=== PATIENT | male | born 1945 | race Caucasian/White ===

== ENCOUNTER 2018-06-07 12:03 | Inpatient (IN) | payer OTHER ==
[2018-06-07] VITALS (8 sets, daily range): BP systolic 113–150; BP diastolic 45–92
[~2018-06-07] VITALS: Ht 167.6 cm; Wt 65.3 kg
[~2018-06-07 12:03] MED LIST: ACET325T53 PO; ALBU18HF2 IH; ALBU2.5V13 NEB; ALBU8.5H8 HHN; ALLA266C2 TP; ASPI-992 PO; FLUT1DIS28 IH; IPRA0.2S49; LEVO750T21 PO; PANT40TA2 PO; PRED10TA PO; PRED20TA GT; PRED50TA PO; SIMV20TA2 PO; Zolpidem Tartrate PO
[2018-06-07] MEDS ORDERED: ADENOSINE 6 MG/2 ML VIAL ONE (12:08)
[2018-06-07] MEDS ORDERED: METOPROLOL TARTRATE INJ 5 MG/5 ML AMPUL ONE (12:13)
[2018-06-07 12:15] LABS: BASOPHILS # (AUTO) 0.1 /CMM (0.0-0.2); BASOPHILS % (AUTO) 0.4 % (0.0-2.0); EOSINOPHILS % (AUTO) 2.8 % (0.0-6.0); HEMATOCRIT 56 % (39-51); HEMOGLOBIN 18.5 g/dL (13.5-17.5); LYMPHOCYTES # (AUTO) 0.7 /CMM (0.8-4.8); LYMPHOCYTES % (AUTO) 4.7 % (20.0-44.0); MEAN CORPUSCULAR HGB CONC 33 g/dl (31.0-36.0); MEAN CORPUSCULAR VOLUME 89 fL (80-96); MONOCYTES # (AUTO) 0.9 /CMM (0.1-1.30); NEUTROPHILS # (AUTO) 13.2 /CMM (1.8-8.9); NEUTROPHILS % (AUTO) 86.1 % (43.0-81.0); PLATELET COUNT (AUTO) 341 /CMM (150-450); RED BLOOD CELL COUNT(AUTO) 6.27 MIL/uL (4.5-6.0); WHITE BLOOD COUNT (AUTO) 15.3 K/uL (4.3-11.0)
[2018-06-07] MEDS ORDERED: methylPREDNISolone SOD SUCC 125 MG/2ML VIAL ONE (12:15)
[2018-06-07 12:26] LABS: CALCIUM, SERUM 9.9 mg/dL (8.5-10.1); CARBON DIOXIDE 34 mmol/L (21-32); CHLORIDE 99 mmol/L (98-107); CREATININE 0.9 mg/dL (0.6-1.3); GLUCOSE 134 mg/dL (74-106); POTASSIUM 3.9 mmol/L (3.5-5.1); SODIUM SERUM 141 mmol/L (136-145); UREA NITROGEN, BLOOD 18 mg/dL (7-18)
[2018-06-07] MEDS ORDERED: METOPROLOL TARTRATE INJ 5 MG/5 ML AMPUL IV ONE (12:30)
[2018-06-07] MEDS ORDERED: methylPREDNISolone SOD SUCC 125 MG/2ML VIAL IV ONE (12:30)
[2018-06-07] MEDS ORDERED: ADENOSINE 6 MG/2 ML VIAL IVP ONE (12:30)
[2018-06-07] MEDS ORDERED: IV NS 0.9% 500 ML BAG IV ONE (12:30)
--- NOTE | 2018-06-07 12:31 | NUR ---
RT NOTE PT PLACED ON BIPAP PER MD ORDER. SETTINGS PRESCRIBED BY MD 15/5. 40%. PT AWAKE AND ALERT. ALARMS SET PER PROTOCOL AND AUDIBLE. BIPAP PLUGGED IN TO RED OUTLET. BIPAP MASK SET AND SECURE PROPERLY. AMBU BAG AT BED SIDE. Addendum: 06/07/18 at 1234 by CAIT CLARK RT Amended: Links added.
[2018-06-07 12:38] LABS: B-TYPE NATRIURETIC PEPTIDE 66 PG/ML (0-125)
[2018-06-07] MEDS ORDERED: TIOT18CA3 IH (12:39)
[2018-06-07] MEDS ORDERED: IPRA12.9 IH (12:39)
[2018-06-07] MEDS ORDERED: ALBU8.5H8 IH (12:39)
[2018-06-07] MEDS ORDERED: FLUT1DIS3 IH (12:39)
[2018-06-07] MEDS ORDERED: PRED10TA PO (12:39)
--- NOTE | 2018-06-07 12:40 | NUR ---
[id number] FROM HOME C/O SOB X 1 WEEK, SVT W/ RATE 167, ADENOSINE 6MG GIVEN IN FIELD. PT HAVING DIFFICULTY BREATHING, USING EXCESSORY MUSCLES. DR. STALEY @ BS. 1215 GIVEN 12 MG OF ADENOSINE IVP 1216 GIVEN 5 MG OF METROPOLOL IVP 1216 GIVEN 125 MG OF SOLUMEDROL IVP 1218 PLACE PT ON BIPAP MACHINE. PT JESSICA WELL. PT CONVERTED TO SR, DENIES CP, SOB, DIZZINESS, N/V @ THIS TIME. WILL CONT TO MONITOR.
[2018-06-07] MEDS ORDERED: GEMF600T5 PO (12:42)
[2018-06-07] MEDS ORDERED: IPRA3AMP23 IH (12:42)
[2018-06-07] MEDS ORDERED: ATOR10TA PO (12:43)
[2018-06-07 13:30] LABS: EOSINOPHILS % (MANUAL) 3 % (0-4); LYMPHOCYTES % (MANUAL) 4 % (16-48); MONOCYTES % (MANUAL) 5 % (0-11.0); NEUTROPHILS % (MANUAL) 88 (42-76)
--- NOTE | 2018-06-07 13:30 | NUR ---
PT SITTING UP AAOX4, STS " I FEEL BETTER ". DENIES CP, SOB, DIZZINESS, OR ANY OTHER DISCOMFORT. PT ON BIPAP & JESSICA WELL. AWAITING BED ASSIGNMENT. WILL CONT TO MONITOR.
--- NOTE | 2018-06-07 14:25 | NUR ---
NURSING SUP STATES PT CANNOT BE MOVED UNTIL FOUNDATION ENGINEER ARRIVES, ETA BEFORE 1900 HOURS
[2018-06-07] MEDS ORDERED: IPRATROPIUM NEB FS 0.5 MG/2.5 ML AMPUL.NEB NEB SCH (16:30)
[2018-06-07] MEDS ORDERED: ACETAMINOPHEN 325 MG TABLET PO PRN (16:30)
[2018-06-07] MEDS: GEMFIBROZIL 600 MG TABLET PO SCH (16:30)
[2018-06-07] MEDS ORDERED: LEVALBUTEROL HCL NEB 1.25 MG/0.5 ML VIAL.NEB NEB SCH (16:30)
[2018-06-07] MEDS ORDERED: IPRATROPIUM NEB FS 0.5 MG/2.5 ML AMPUL.NEB ONE (16:35)
--- NOTE | 2018-06-07 16:42 | NUR ---
ADMIT TO ICU BED 257 PEDRO HOWARD
--- NOTE | 2018-06-07 16:58 | NUR ---
REPORT GIVEN TO PEDRO HOWARD @ ICU FOR CONT OF CARE.
--- NOTE | 2018-06-07 17:40 | NUR ---
RT NOTE PT TRANSFERRED TO ICU. PT PLACED BACK ON BIPAP ON SETTINGS PRESCRIBED. ALARMS SET PER PROTOCOL AND AUDIBLE. PT AWAKE AND ALERT. NO DISTRESS NOTED. BIPAP PLUGGED IN TO RED OUTLET. MASK SET AND SECURE PROPERLY. MEPILEX PLACED. Addendum: 06/07/18 at 1742 by CAIT CLARK RT Amended: Links added.
[2018-06-07] MEDS: IV 1/2NS 1000 ML 1,000 ML IV PRN (18:24)
[2018-06-07] MEDS: ATORVASTATIN 10 MG TABLET PO SCH (18:28)
[2018-06-07] MEDS: methylPREDNISolone SOD SUCC 40 MG/ML VIAL IV SCH ×2 (18:28→23:50)
[2018-06-07] MEDS: ASPIRIN 325 MG TABLET PO SCH (18:28)
[2018-06-07] MEDS: LEVOFLOXACIN 500 MG /D5W 100ML 500 MG in PREMIX 1 EA IV SCH (18:29)
[2018-06-07] MEDS ORDERED: AMLODIPINE BESYLATE 5 MG TABLET PO SCH (19:30)
[2018-06-07] MEDS: ALBUTEROL HALF STRENGTH 1.25 MG/3 ML VIAL.NEB NEB SCH (20:26)
[2018-06-07] MEDS: IPRATROPIUM NEB FS 0.5 MG/2.5 ML AMPUL.NEB NEB SCH (20:27)
--- NOTE | 2018-06-07 20:57 | NUR ---
DEVELOPMENT CONSULTANT. ADMISSION. RECEIVED THE PT FROM ER VIA INCHRON. PT AWAKE, ALERT, FOLLOW COMMANDS. ELECTRICAL LOGGER SHOWING NSR. BIPAP ON. SETTINGS 15/5, RATE IS 16, FIO2 40%. SAT 99%. NO ACUTE DISTRESS NOTED. IV RT AND LT AC 20G. IVF 1/2NS 100ML/H, HOB ELEVATED. WILL CONTINUE TO MONITOR VITALS.
[2018-06-08] VITALS (36 sets, daily range): BP systolic 114–169; BP diastolic 58–122
[2018-06-08] MEDS: ALBUTEROL HALF STRENGTH 1.25 MG/3 ML VIAL.NEB NEB SCH ×6 (00:04→23:22)
[2018-06-08] MEDS: IPRATROPIUM NEB FS 0.5 MG/2.5 ML AMPUL.NEB NEB SCH ×5 (01:40→23:23)
--- NOTE | 2018-06-08 03:34 | NUR ---
QA REVIEWER. AM CARE. ORAL CARE,BED BATH GIVEN. LINEN CHANGED, REMAINING SAME BIPAP SETTINGS TOLERATED WELL. SAT 99%, NO ACUTE DISTRESS NOTED,CARRDIAC MONITOR SHOWING NSR, IV RT HAND 20G. IVF 1/2NS 100ML/H. HOB ELEVATED. WILL CONTINUE TO MONITOR VITALS.
[2018-06-08] MEDS: IV 1/2NS 1000 ML 1,000 ML IV PRN ×2 (03:50→14:46)
[2018-06-08 05:11] LABS: CALCIUM, SERUM 8.2 mg/dL (8.5-10.1); CARBON DIOXIDE 31 mmol/L (21-32); CHLORIDE 100 mmol/L (98-107); CREATININE 0.7 mg/dL (0.6-1.3); GLUCOSE 148 mg/dL (74-106); POTASSIUM 4.1 mmol/L (3.5-5.1); SODIUM SERUM 139 mmol/L (136-145); UREA NITROGEN, BLOOD 20 mg/dL (7-18)
[2018-06-08] MEDS: methylPREDNISolone SOD SUCC 40 MG/ML VIAL IV SCH ×4 (05:16→23:46)
[2018-06-08 05:20] LABS: BASOPHILS % (AUTO) 0.2 % (0.0-2.0); EOSINOPHILS % (AUTO) 0.2 % (0.0-6.0); HEMATOCRIT 43 % (39-51); HEMOGLOBIN 14.5 g/dL (13.5-17.5); LYMPHOCYTES # (AUTO) 0.3 /CMM (0.8-4.8); LYMPHOCYTES % (AUTO) 3.2 % (20.0-44.0); MEAN CORPUSCULAR HGB CONC 34 g/dl (31.0-36.0); MEAN CORPUSCULAR VOLUME 88 fL (80-96); MONOCYTES # (AUTO) 0.2 /CMM (0.1-1.30); MONOCYTES % (AUTO) 2.2 % (2.0-12.0); NEUTROPHILS # (AUTO) 7.8 /CMM (1.8-8.9); NEUTROPHILS % (AUTO) 94.2 % (43.0-81.0); PLATELET COUNT (AUTO) 242 /CMM (150-450); RED BLOOD CELL COUNT(AUTO) 4.85 MIL/uL (4.5-6.0); WHITE BLOOD COUNT (AUTO) 8.3 K/uL (4.3-11.0)
[2018-06-08 05:26] LABS: CHOLESTEROL 202 mg/dL (<200); HDL CHOLESTEROL 58 mg/dL (40-60); LDL 130 mg/dL (0-99); THYROID STIMULATING HORMONE 0.203 uIU/mL (0.358-3.74); TRIGLYCERIDES 70 mg/dL (30-150)
--- NOTE | 2018-06-08 05:50 | NUR ---
SCHOOL BUS TECHNICIAN PT URINE NOT PASSED. BLADDER DISTENDED. FC 16FG PLACED WITH OUT DIFFICULT. CLEAR URINE DRAINING.
--- NOTE | 2018-06-08 07:15 | NUR ---
RN INITIAL NOTES: Rec'd pt awake on bed, not in any distress, A/O x 4. On Bipap, sating at 100%. On telemonitor, SR. Has IV access on R AC G18 w/ 1/2 NS x 100cc/hr infusing well & L hand G20, SL. Has FC draining to BSB w/ yellowish UOP. Safety precaution in place. Call light w/in reach. Will continue to monitor & attend pt needs.
--- NOTE | 2018-06-08 08:00 | NUR ---
Pt seen & examined by Dr. Vizcaino. Made him aware re: BP trending up w/ orders made & carried out.
[2018-06-08] MEDS: DILTIAZEM HCL CD 120 MG PO SCH ×2 (09:24→17:42)
[2018-06-08] MEDS: ASPIRIN 325 MG TABLET PO SCH (09:24)
[2018-06-08] MEDS: GEMFIBROZIL 600 MG TABLET PO SCH (09:24)
--- NOTE | 2018-06-08 10:00 | NUR ---
Pt seen & examined by Dr. Jimenez w/ orders to place pt on NC to keep SBP >90% & then check ABG after an hour. RT Whitfield made aware.
--- NOTE | 2018-06-08 11:15 | NUR ---
ABG results reviewed by Dr. Jimenez w/ orders to keep pt on NC at 4lpm, no need for BIPAP at HS. Pt made aware.
[2018-06-08 11:59] LABS: ABG BASE EXCESS 3.8 mmol/L; ABG OXYGEN SATURATION 97.6 % (92.0-98.5); ABG PCO2 45.3 mmHg (35.0-45.0); ABG PH 7.423 (7.350-7.450); ABG PO2 99.2 mmHg (75.0-100.0); AaDO2 104.9 mmHg; COHb 0.7 % (0.5-1.5); MetHb 0.5 % (0.0-1.5); O2Hb 96.4 % (94.0-97.0); SITE, ABG Right Radial; VENT MODE, BG N/C
--- NOTE | 2018-06-08 17:30 | NUR ---
Pt requesting for Ensure Vanilla TID w/ meals. Dr. Vizcaino made aware & said okay.
[2018-06-08] MEDS: LEVOFLOXACIN 500 MG /D5W 100ML 500 MG in PREMIX 1 EA IV SCH (17:42)
[2018-06-08] MEDS: ATORVASTATIN 10 MG TABLET PO SCH (17:42)
--- NOTE | 2018-06-08 18:00 | NUR ---
Pt requesting if he can be place on BIPAP at . Dr. Jimenez informed & ordered Bipap 08/10.
--- NOTE | 2018-06-08 18:54 | NUR ---
RN CLOSING NOTES: Pt resting comfortably on his bed at this time. Pt tolerated NC at 4lpm but would like to be on Bipap at HS. On telemonitor, still SR. IV access kept patent & intact: R AC G18 w/ 1/2 NS x 100cc/hr infusing well & L hand G20, SL. FC draining to BSB w/ adequate yellowish UOP. Safety precaution kept in place at all times. Call light w/in reach. Endorsed to PM RN for GELACIO. Pt c/o of Vicky MOLINA. Ear drums checked using otoscope, no redness noted.
--- NOTE | 2018-06-08 20:09 | NUR ---
PT IS AWAKE AND ALERT ON NC. PT REQUESTED TO BE ON BIPAP, LITTLE SHORT OF BREATH. RN NOTIFIED. REDNESS AROUND THE BRIDGE OF THE NOSE. MEPILEX IN PLACE. RN AWARE. ALARMS SET AND AUDIBLE. WILL CONTINUE TO MONITOR. Addendum: 06/08/18 at 2010 by JOHNNY HOWARD RT Amended: Links added.
--- NOTE | 2018-06-08 23:06 | NUR ---
FITTER PLACER NOTE 1904 Received patient awake and alert, oriented. denies any pain and discomfort, no distress. Patient on 4Lpm of O2 via NC, saturating well. HOB elevated. IVF as ordered. F/C in place and intact, patent. draining well via gravity. needs anticipated and met. safety and comfort ensured. bed alarm in place. call light in reach. 1999 RT at bedside, patient requesting for BiPAP to be placed. patient noted with redness on bridge of nose. offered Bipap mask alternative, patient prefers old mask, mepilex placed for skin management. placed on BiPAP per request. no distress. 2299 Patient with no acute distress. tolerating Bipap well. saturating well. good UO.
[2018-06-09] VITALS (20 sets, daily range): BP systolic 104–160; BP diastolic 53–79
[2018-06-09] MEDS: IV 1/2NS 1000 ML 1,000 ML IV PRN ×2 (02:18→11:42)
[2018-06-09] MEDS: ALBUTEROL HALF STRENGTH 1.25 MG/3 ML VIAL.NEB NEB SCH ×4 (03:28→19:53)
[2018-06-09 04:46] LABS: CALCIUM, SERUM 9.1 mg/dL (8.5-10.1); CARBON DIOXIDE 31 mmol/L (21-32); CHLORIDE 100 mmol/L (98-107); CREATININE 0.8 mg/dL (0.6-1.3); GLUCOSE 158 mg/dL (74-106); POTASSIUM 4.6 mmol/L (3.5-5.1); SODIUM SERUM 131 mmol/L (136-145); UREA NITROGEN, BLOOD 23 mg/dL (7-18)
[2018-06-09] MEDS: methylPREDNISolone SOD SUCC 40 MG/ML VIAL IV SCH ×3 (06:01→17:13)
--- NOTE | 2018-06-09 06:37 | NUR ---
CHEMISTRY SPECIALIST CLOSING NOTE Patient with no acute change in condition observed overnight. no distress and denies pain and discomfort. IVF as ordered, meds given. on BiPAP, breathing is even and unlabored. F/C intact, patent. safety and comfort ensured. bed in low and locked position. call light in reach. bed alarm in place. will endorse accordingly.
--- NOTE | 2018-06-09 06:39 | NUR ---
OFF BIPAP. PLACED ON 4L NC. NOTIFIED RN.
--- NOTE | 2018-06-09 07:15 | NUR ---
RN INITIAL NOTES RECEIVED PT AWAKE, A/OX4. ON 02 VIA 4LPM. HOB ELEVATED. DENIES ANY PAIN. IV LINES IN PLACE. IVF INFUSING. FC IN PLACE. NO HEMATURIA NOTED. PT COMFORTABLE. CALL LIGHT WITHIN REACH. WILL MONITOR.
[2018-06-09] MEDS: IPRATROPIUM NEB FS 0.5 MG/2.5 ML AMPUL.NEB NEB SCH ×3 (07:35→19:53)
[2018-06-09] MEDS: ASPIRIN 325 MG TABLET PO SCH (08:03)
[2018-06-09] MEDS: GEMFIBROZIL 600 MG TABLET PO SCH (08:03)
[2018-06-09] MEDS: DILTIAZEM HCL CD 120 MG PO SCH (08:03)
--- NOTE | 2018-06-09 10:30 | NUR ---
RN NOTES 0900 SEEN AND EXAMINED BY DR CORDERO. PT ON AT 4LPM VIA PR. HOB ELEVATED. NO SOB NOTED. MD CLEARED PT TO DOWNGRADE TO MELBA. 1030 SEEN AND EXAMINED BY DR VEGA. AWARE OF CURRENT LAB VALUES AND CXR RESULT. OK TO DOWNGRADE PT. PT AWARE. WILL MONITOR
--- NOTE | 2018-06-09 12:00 | NUR ---
RN NOTES PT TRANSFERRED TO ROOM 114-1. PT AWAKE, A/OX4. ON 02 AT 4LPM VIA NC. NO SOB NOTED. NO RESPIRATORY DISTRESS NOTED. DENIES ANY PAIN. REPORT GIVEN TO PEDRO CHANDLER. TOOK OVER PT'S CARE.
--- NOTE | 2018-06-09 12:30 | NUR ---
MELBA RN NOTE RECEIVED PATIENT FROM ICU AT 12PM, PATIENT ALERT AND ORIENTED, ABLE TO MAKE NEEDS KNOWN. ON NASAL CANNULA AT 4LPM SATURATING WELL, NO RESPIRATORY DISTRESS NOTED, NO COMPLAINT OF PAIN. BIPAP AT BEDSIDE. IV SITE ON RIGHT AC INTACT INFUSING HALF NORMAL SALINE ORDERED. VITAL SIGNS STABLE. CONNECTED TO EXTERNAL TELE MONITOR, SINUS RHYTHM WITH HEART RATE IN THE 70S AND 80S. BED IN LOW LOCKED POSITION, 2 SIDE RAILS UP, CALL LIGHT WITHIN REACH, WILL CONTINUE TO MONITOR CLOSELY.
[2018-06-09] MEDS: LEVOFLOXACIN 500 MG /D5W 100ML 500 MG in PREMIX 1 EA IV SCH (17:13)
[2018-06-09] MEDS: ATORVASTATIN 10 MG TABLET PO SCH (17:14)
--- NOTE | 2018-06-09 18:28 | NUR ---
RT Pt is awake and alert on nc. Requesting to go back on bipap due to sob and to help him sleep. Rn aware. Alarms are on and audible. Will continue to monitor. Addendum: 06/09/18 at 1841 by LEANDER EVANS RT Amended: Links added.
--- NOTE | 2018-06-09 19:57 | NUR ---
MELBA RN NOTE PATIENT RESTING IN BED IN STABLE CONDITION, NO RESPIRATORY DISTRESS OR COMPLAINT OF PAIN. NO CHANGES NOTED SINCE RECEIVING PATIENT FROM ICU EARLIER TODAY. BED IN LOW LOCKED POSITION, CALL LIGHT WITHIN REACH, ENDORSED TO AUTOMOBILE RACER NURSE FOR CONTINUITY OF CARE.
[2018-06-10] VITALS (7 sets, daily range): BP systolic 121–167; BP diastolic 63–82
[2018-06-10] MEDS: IV 1/2NS 1000 ML 1,000 ML IV PRN ×3 (00:09→23:19)
[2018-06-10] MEDS: methylPREDNISolone SOD SUCC 40 MG/ML VIAL IV SCH ×5 (00:09→23:20)
[2018-06-10] MEDS: IPRATROPIUM NEB FS 0.5 MG/2.5 ML AMPUL.NEB NEB SCH ×4 (01:55→19:03)
[2018-06-10] MEDS: ALBUTEROL HALF STRENGTH 1.25 MG/3 ML VIAL.NEB NEB SCH ×4 (01:55→19:03)
[2018-06-10 06:23] LABS: CALCIUM, SERUM 9.1 mg/dL (8.5-10.1); CARBON DIOXIDE 30 mmol/L (21-32); CHLORIDE 102 mmol/L (98-107); CREATININE 0.7 mg/dL (0.6-1.3); GLUCOSE 191 mg/dL (74-106); SODIUM SERUM 139 mmol/L (136-145); UREA NITROGEN, BLOOD 22 mg/dL (7-18)
[2018-06-10 06:34] LABS: BASOPHILS % (AUTO) 0.2 % (0.0-2.0); HEMATOCRIT 41 % (39-51); HEMOGLOBIN 13.8 g/dL (13.5-17.5); LYMPHOCYTES # (AUTO) 0.3 /CMM (0.8-4.8); LYMPHOCYTES % (AUTO) 2.1 % (20.0-44.0); MEAN CORPUSCULAR HGB CONC 34 g/dl (31.0-36.0); MEAN CORPUSCULAR VOLUME 87 fL (80-96); MONOCYTES # (AUTO) 0.2 /CMM (0.1-1.30); MONOCYTES % (AUTO) 1.8 % (2.0-12.0); NEUTROPHILS # (AUTO) 12.2 /CMM (1.8-8.9); NEUTROPHILS % (AUTO) 95.9 % (43.0-81.0); PLATELET COUNT (AUTO) 278 /CMM (150-450); RED BLOOD CELL COUNT(AUTO) 4.76 MIL/uL (4.5-6.0); WHITE BLOOD COUNT (AUTO) 12.7 K/uL (4.3-11.0)
--- NOTE | 2018-06-10 08:00 | NUR ---
MELBA RN NOTE RECEIVED PATIENT I8N BED , ALERT ORIENTED X4. ON O2 4L NC , NO SOB NOTED BUT WANTS TO HAVE BIPAP FOR USING FOR COMMODE. PT ON TELE MONITOR SR HR 67 WITH F/C TO GRAVITY WITH YELLOW CLEAR URINE. L HAND HL ON INTACT NO/S ON IV FLUIDS ORDERED. REPORT TO DOCTOR THAT SODIUM I9S 141 TODAY. INFORMED DOCTOR SILVIA PT WANTS TO USE BIPAP WHILE ON THE THE COMMODE, STATED WILL SEE PT SOON.
[2018-06-10] MEDS: ASPIRIN 325 MG TABLET PO SCH (08:20)
[2018-06-10] MEDS: GEMFIBROZIL 600 MG TABLET PO SCH (08:20)
[2018-06-10] MEDS: DILTIAZEM HCL CD 120 MG PO SCH (08:32)
--- NOTE | 2018-06-10 08:36 | NUR ---
MELBA RN NOTES DR VEGA AT BEDSIDE EXAMINED PT. PT RECEIVING BREATHING TREATMENT BY RT. WILL FOLLOW UP.
[2018-06-10 09:30] LABS: ABG BASE EXCESS 5.8 mmol/L; ABG OXYGEN SATURATION 97.5 % (92.0-98.5); ABG PCO2 48.1 mmHg (35.0-45.0); ABG PH 7.431 (7.350-7.450); ABG PO2 101.7 mmHg (75.0-100.0); AaDO2 99.2 mmHg; COHb 0.4 % (0.5-1.5); MetHb 0.5 % (0.0-1.5); O2Hb 96.6 % (94.0-97.0); SITE, ABG Right Radial; VENT MODE, BG NASAL CANNULA
--- NOTE | 2018-06-10 12:00 | NUR ---
MS RN NOTE PT IN THE BED. PT COMFORTABLE. ENCOURAGED TO EAT FOOD. WILL CONTINUE TO MONITOR. BROTHER ON BEDSIDE.
--- NOTE | 2018-06-10 14:06 | NUR ---
MS RN NOTE PT ON 3L O2 NC BY RT. SATURATION IS 96%. PT ON BREATHING TX.
[2018-06-10] MEDS: LEVOFLOXACIN 500 MG /D5W 100ML 500 MG in PREMIX 1 EA IV SCH (17:34)
[2018-06-10] MEDS: ATORVASTATIN 10 MG TABLET PO SCH (17:35)
--- NOTE | 2018-06-10 18:21 | NUR ---
MS RN NOTE FAMILY ON BEDSIDE. HAVING DINNER. CONT ON IV FLUID. NOT IN DISTRESS. WILL MONITOR CLOSELY.
--- NOTE | 2018-06-10 20:28 | NUR ---
BATCH BLENDER OPENING NOTES RECEIVED REPORT FROM CON VASQUEZ. PATIENT A/A/O X3, ABLE TO MAKE NEEDS KNOWN. BREATHING EVEN & UNLABORED, TOLERATING O2 @ 3LPM VIA NC, SATING WELL @ 96%. LEFT HAND IV#20 INTACT & PATENT W/ DRESSING CDI & IVF 1/2 NS INFUSING WELL @ 100 ML/HR. DENIES ANY PAIN OR DISCOMFORT @ THIS TIME. SAFETY MEASURES IN PLACE W/ SIDE RAILS UP & BED ALARM ON. INSTRUCTED TO USE CALL LIGHT FOR ASSISTANCE. WILL CONTINUE TO MONITOR.
[2018-06-11] MEDS: IPRATROPIUM NEB FS 0.5 MG/2.5 ML AMPUL.NEB NEB SCH ×4 (00:35→19:36)
[2018-06-11] MEDS: ALBUTEROL HALF STRENGTH 1.25 MG/3 ML VIAL.NEB NEB SCH ×4 (00:35→19:36)
[2018-06-11 04:00] VITALS: BP 122/68
[2018-06-11] MEDS: methylPREDNISolone SOD SUCC 40 MG/ML VIAL IV SCH ×4 (05:41→23:51)
[2018-06-11 07:36] LABS: BASOPHILS % (AUTO) 0.2 % (0.0-2.0); HEMATOCRIT 42 % (39-51); HEMOGLOBIN 13.8 g/dL (13.5-17.5); LYMPHOCYTES # (AUTO) 0.2 /CMM (0.8-4.8); MEAN CORPUSCULAR HGB CONC 33 g/dl (31.0-36.0); MEAN CORPUSCULAR VOLUME 86 fL (80-96); MONOCYTES # (AUTO) 0.2 /CMM (0.1-1.30); MONOCYTES % (AUTO) 1.9 % (2.0-12.0); NEUTROPHILS # (AUTO) 11.4 /CMM (1.8-8.9); NEUTROPHILS % (AUTO) 95.9 % (43.0-81.0); PLATELET COUNT (AUTO) 260 /CMM (150-450); RED BLOOD CELL COUNT(AUTO) 4.81 MIL/uL (4.5-6.0); WHITE BLOOD COUNT (AUTO) 11.9 K/uL (4.3-11.0)
[2018-06-11 07:39] LABS: CALCIUM, SERUM 9.1 mg/dL (8.5-10.1); CARBON DIOXIDE 33 mmol/L (21-32); CHLORIDE 102 mmol/L (98-107); CREATININE 0.7 mg/dL (0.6-1.3); GLUCOSE 243 mg/dL (74-106); SODIUM SERUM 140 mmol/L (136-145); UREA NITROGEN, BLOOD 21 mg/dL (7-18)
--- NOTE | 2018-06-11 07:45 | NUR ---
RN NOTE: RECEIVED PATIENT IN BED, AWAKE, ALERT AND VERBALLY RESPONSIVE. RESPIRATION EVEN AND UNLABORED ON O2 3L/MIN VIA NC SATURATING 95%. DENIED ANY PAIN. HOB ELEVATED. (L) HAND IV SITE NOTED PATENT AND INTACT INFUSING 1/2 NS@100ML/HR. GARZA CATHETER IN PLACED DRAINING YELLOW URINE TO GRAVITY. PATIENT REFUSED TO GET IT REMOVED. BEDSIDE COMMODE AT THE BEDSIDE. BED ALARMED AND LOCKED AT ALL TIMES. CALL LIGHT WITHIN REACH. NEEDS ANTICIPATED.
[2018-06-11 08:00] VITALS: BP 117/63
[2018-06-11] MEDS: GEMFIBROZIL 600 MG TABLET PO SCH (08:42)
[2018-06-11] MEDS: ASPIRIN 325 MG TABLET PO SCH (08:44)
[2018-06-11] MEDS: DILTIAZEM HCL CD 120 MG PO SCH (08:45)
[2018-06-11] MEDS ORDERED: DEXTROSE 50%-WATER 50 ML DISP.SYRIN IV PRN (09:00)
[2018-06-11] MEDS: IV 1/2NS 1000 ML 1,000 ML IV PRN ×2 (09:02→21:51)
[2018-06-11] MEDS: BLOOD SUGAR DIAGNOSTIC 1 EACH STRIP IN SCH ×4 (09:12→21:40)
[2018-06-11] MEDS: INSULIN REGULAR, HUMAN 100 UNIT/ML 3 ML VIAL SQ PRN ×4 (09:18→21:36)
[2018-06-11 09:26] LABS: ABG BASE EXCESS 6.5 mmol/L; ABG OXYGEN SATURATION 96.5 % (92.0-98.5); ABG PCO2 48.5 mmHg (35.0-45.0); ABG PH 7.437 (7.350-7.450); ABG PO2 89.1 mmHg (75.0-100.0); AaDO2 53.3 mmHg; COHb 0.2 % (0.5-1.5); MetHb 0.6 % (0.0-1.5); O2Hb 95.7 % (94.0-97.0); SITE, ABG Right Radial
[2018-06-11 16:00] VITALS: BP 164/66
[2018-06-11] MEDS: LEVOFLOXACIN 500 MG /D5W 100ML 500 MG in PREMIX 1 EA IV SCH (17:25)
[2018-06-11] MEDS: ATORVASTATIN 10 MG TABLET PO SCH (17:25)
--- NOTE | 2018-06-11 19:15 | NUR ---
RN NOTES RECEIVED PT IN BED, A/OX3, ON 2L O2 VIA NC, SPO2 99%, NO SOB NOTED. DENIES PAIN AT THIS TIME. WITH ONGOING IVF 1/2 NS AT 100 MLS/HR INFUSING WELL ON RHAND G22 IV. F/C INTACT AND IN PLACED, DRAINING YELLOW COLOR URINE. HOB ELEVATED. SAFETY MEASURES IN PLACED. CALL LIGHT WITHIN EASY REACH. WILL CONT TO MONITOR
--- NOTE | 2018-06-11 19:27 | NUR ---
RN NOTE: PATIENT ON STABLE CONDITION AT THIS TIME. NO CHANGE IN CONDITION. BEDSIDE REPORT GIVEN TO PM SHIFT NURSE FOR CONTINUITY OF CARE AND EMPHASIZED THE IMPORTANCE TO IMPLEMENT THE BIPAP AT NIGHT.
[2018-06-11 20:00] VITALS: BP 146/63
--- NOTE | 2018-06-11 22:00 | NUR ---
RN notes received report and patient from PEDRO Duarte
[2018-06-12] VITALS: BP 147/64
[2018-06-12] MEDS: IPRATROPIUM NEB FS 0.5 MG/2.5 ML AMPUL.NEB NEB SCH ×4 (02:01→17:29)
[2018-06-12] MEDS: ALBUTEROL HALF STRENGTH 1.25 MG/3 ML VIAL.NEB NEB SCH ×4 (02:01→17:29)
[2018-06-12 04:00] VITALS: BP 151/56
[2018-06-12] MEDS: methylPREDNISolone SOD SUCC 40 MG/ML VIAL IV SCH ×3 (05:36→18:04)
[2018-06-12] MEDS: IV 1/2NS 1000 ML 1,000 ML IV PRN (05:36)
[2018-06-12 07:32] LABS: HEMATOCRIT 43 % (39-51); HEMOGLOBIN 14.3 g/dL (13.5-17.5); LYMPHOCYTES # (AUTO) 0.3 /CMM (0.8-4.8); LYMPHOCYTES % (AUTO) 2.1 % (20.0-44.0); MEAN CORPUSCULAR HGB CONC 33 g/dl (31.0-36.0); MEAN CORPUSCULAR VOLUME 87 fL (80-96); MONOCYTES # (AUTO) 0.4 /CMM (0.1-1.30); MONOCYTES % (AUTO) 2.6 % (2.0-12.0); NEUTROPHILS # (AUTO) 13.6 /CMM (1.8-8.9); NEUTROPHILS % (AUTO) 95.3 % (43.0-81.0); PLATELET COUNT (AUTO) 262 /CMM (150-450); RED BLOOD CELL COUNT(AUTO) 4.93 MIL/uL (4.5-6.0); WHITE BLOOD COUNT (AUTO) 14.3 K/uL (4.3-11.0)
[2018-06-12 07:43] LABS: CALCIUM, SERUM 8.6 mg/dL (8.5-10.1); CARBON DIOXIDE 33 mmol/L (21-32); CHLORIDE 99 mmol/L (98-107); CREATININE 0.7 mg/dL (0.6-1.3); GLUCOSE 175 mg/dL (74-106); POTASSIUM 3.9 mmol/L (3.5-5.1); SODIUM SERUM 141 mmol/L (136-145); UREA NITROGEN, BLOOD 22 mg/dL (7-18)
[2018-06-12 08:00] VITALS: BP 156/67
--- NOTE | 2018-06-12 08:00 | NUR ---
MELBA RN NOTE .RECEIVED PATIENT IN BED , ALERT, ORIENTED X3 ,ON 3 L NC, NO SOB NOTED ,SAT 98%, ON TELE MONITOR SB.58, PER DR SILVIA SALINAS TO GIVE CARDIZEM, WITH GARZA TO GRAVITY WITH YELLOW CLEAR URINE, RT FA HL INTACT ,NO S\S INFECTION NOTED , ON IVF ORDERED . PLAN OF CARE DISCUSSED WITH PATIENT , CALL LIGHT WITHIN REACH ,WILL CONT TO MONITOR CLOSELY
[2018-06-12] MEDS: ASPIRIN 325 MG TABLET PO SCH (08:28)
[2018-06-12] MEDS: GEMFIBROZIL 600 MG TABLET PO SCH (08:28)
[2018-06-12] MEDS: DILTIAZEM HCL CD 120 MG PO SCH (08:28)
[2018-06-12] MEDS: INSULIN REGULAR, HUMAN 100 UNIT/ML 3 ML VIAL SQ PRN ×3 (08:30→17:35)
[2018-06-12] MEDS: BLOOD SUGAR DIAGNOSTIC 1 EACH STRIP IN SCH ×3 (08:31→17:35)
[2018-06-12] MEDS ORDERED: LEVO500T75 PO (08:52)
[2018-06-12] MEDS ORDERED: DILT120C87 PO (08:55)
--- NOTE | 2018-06-12 10:30 | NUR ---
MELBA RN NOTES DR VEGA BEDSIDE AND ORDERED PATIENT DISCHARGED HOME. OK TO REMOVE GARZA CATHETER.
[2018-06-12 12:00] VITALS: BP 155/70
--- NOTE | 2018-06-12 14:00 | NUR ---
MELBA RN NOTE PATIENT STATED HE IS A STILL WEAK AND DOES NOT WANT TO GO HOME. PT WILL BE D/C TO SNF. SQL BI DEVELOPER KAROL NOTIFIED. DR VEGA NOTIFIED.
--- NOTE | 2018-06-12 14:48 | NUR ---
MELBA RN NOTES DR VEGA CALLED BACK. MD SALINAS'D D/C TO SNF. VARIETY PERFORMER NOTIFIED. WAITING FOR AVAILABLE BED TO D/C. GARZA CATHETER REMOVED.
[2018-06-12 16:00] VITALS: BP 153/67
--- NOTE | 2018-06-12 16:49 | NUR ---
MELBA RN NOTE CALLED TO SNF ,REPORT GIVEN SPOKE WITH NANDO VASQUEZ
--- NOTE | 2018-06-12 17:00 | NUR ---
MELBA RN NOTE ABLE TO URINATE AFTER GARZA CATH WAS REMOVED ,VOIDED 450 ML OF YELLOW CLEAR URINE
[2018-06-12] MEDS: LEVOFLOXACIN 500 MG /D5W 100ML 500 MG in PREMIX 1 EA IV SCH (17:36)
--- NOTE | 2018-06-12 18:00 | NUR ---
MELBA RN NOTE BREATHING TX DONE BY RT ,NOT IN DISTRESS
[2018-06-12] MEDS: ATORVASTATIN 10 MG TABLET PO SCH (18:03)
--- NOTE | 2018-06-12 18:37 | NUR ---
MELBA RN NOTE AMBULANCE ARRIVED,REPORT GIVEN, TELE REMOVED, HL ON RT FA REMOVED, BELONING SIGNED , NO SOB NOTED AT THIS TIME
--- NOTE | 2018-06-12 18:49 | NUR ---
MELBA RN NOTES PATIENT D/C VIA AMBULANCE TRANSPORT. PATIENT ALERT TO BASELINE, NO SOB, V/S WNL. PATIENT TO BE ADMITTED TO SNF PER MD ORDER.
== END 2018-06-12 18:47 | DRG 189 ==
LOC: ER 12:05 → ICU 16:46 → TELE-TD 06-09 12:02 → MEDSG1 06-10 09:40 → TELE-TD 06-11 21:59
PROVIDERS: ADMIT Internal Medicine; ATTEND Internal Medicine
PROC: 5A09357 Assistance with Respiratory Ventilation, Less than 24 Consecutive Hours, Continuous Positive Airway Pressure (ICD-10-PCS; principal; 2018-06-07)
PROC: 5A09357 Assistance with Respiratory Ventilation, Less than 24 Consecutive Hours, Continuous Positive Airway Pressure (ICD-10-PCS; 2018-06-09)
DX: J96.22 Acute and chronic respiratory failure with hypercapnia (principal); J44.1 Chronic obstructive pulmonary disease with (acute) exacerbation; I10 Essential (primary) hypertension; E78.5 Hyperlipidemia, unspecified; Z87.891 Personal history of nicotine dependence; R73.9 Hyperglycemia, unspecified; E78.00 Pure hypercholesterolemia, unspecified; Z88.2 Allergy status to sulfonamides; J96.21 Acute and chronic respiratory failure with hypoxia; R00.0 Tachycardia, unspecified; T38.0X5A Adverse effect of glucocorticoids and synthetic analogues, initial encounter; Y92.89 Other specified places as the place of occurrence of the external cause; Z99.81 Dependence on supplemental oxygen
CPT/HCPCS: 36415; 36600; 71045-TC; 80048-TC; 80061-TC; 82803-TC; 82962-TC; 83880; 84443-TC; 84484-TC; 85025-TC; 85730-TC; 87081-TC; 94660; 94760-TC; 94762-TC; 94799-TC; A4216; G0378; J0153; J1815; J1956; J2920; J2930; J3490; J7042